=== PATIENT | male | born 1995 | race Caucasian/White ===

== ENCOUNTER 2021-09-26 12:49 | Observation (INO) | payer OTHER ==
[2021-09-26] MEDS ORDERED: Ringers Lactate 1,000 ML IV ONE ×2 (13:17→15:37)
[2021-09-26] MEDS ORDERED: KETOROLAC 30 MG/ML INJ ONE (13:20)
[2021-09-26] MEDS ORDERED: SUCCINYLCHOLINE 20 MG/ML (10 ML) IV ONE (13:20)
[2021-09-26] MEDS ORDERED: FENTANYL CITR 100 MCG/2 ML ONE (13:20)
[2021-09-26] MEDS ORDERED: propofoL 200 MG/20 ML VIAL IV ONE (13:20)
[2021-09-26] MEDS ORDERED: ROCURONIUM 50 MG/5 ML VIAL IV ONE (13:20)
[2021-09-26] MEDS ORDERED: MIDAZOLAM HCL 2 MG/2 ML INJ ONE (13:20)
[2021-09-26] MEDS ORDERED: dexAMETHasone 10 MG/ML VIAL ONE (13:20)
[2021-09-26] MEDS ORDERED: LIDOCAINE 2% MPF 5 ML VIAL ONE (13:20)
[2021-09-26] MEDS ORDERED: ONDANSETRON 4 MG/2 ML VIAL ONE (13:20)
[2021-09-26] MEDS ORDERED: NA CIT/CITRIC AC 30 ML ORAL UDC ONE (13:21)
[2021-09-26] MEDS ORDERED: Phenylephrine HCl 10 MG/ML 1 ML VIAL ONE (13:21)
[2021-09-26] MEDS ORDERED: GLYCOPYRROLATE 0.2 MG/ML SYR ONE (14:41)
[2021-09-26] MEDS ORDERED: NEOSTIGMINE 1 MG/ML -10 ML VIAL ONE (14:43)
--- NOTE | 2021-09-26 15:05 | P.BOP ---
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
[2021-09-26] MEDS ORDERED: HYDROCODONE/APAP 5/325 MG TAB PO PRN (15:09)
[2021-09-26] MEDS ORDERED: MORPHINE 2 MG/ML SYR IV PRN (15:09)
[2021-09-26] MEDS ORDERED: SODIUM CHLORIDE 0.9% 10ML INJ IV PRN (15:09)
[2021-09-26] MEDS ORDERED: HYDROMORPHONE HCL 1 MG/ML INJ IV PRN (15:09)
[2021-09-26] MEDS ORDERED: MEPERIDINE HCL 25 MG/ML SYR ONE (15:24)
[2021-09-26] MEDS ORDERED: ONDANSETRON 4 MG/2 ML VIAL IV PRN (16:20)
[2021-09-26 16:55] VITALS: O2SAT 100
[2021-09-26 17:18] VITALS: BMI 22.3
[2021-09-26] MEDS: NA CHLORIDE 0.9% 1,000 ML IV SCH (19:34)
[2021-09-26] MEDS: CEFOXITIN 1 GM in NA CHLORIDE 0.9% 50 ML IVPB SCH (19:34)
[2021-09-27] MEDS: CEFOXITIN 1 GM in NA CHLORIDE 0.9% 50 ML IVPB SCH ×2 (00:22→05:20)
--- NOTE | 2021-09-27 02:15 | OP ---
Date of Procedure: 09/26/2021 Surgeon: Fortino Vargas MD Film Waxer: VLADIMIR Graham Preoperative Diagnosis: Acute appendicitis. Postoperative Diagnosis: Acute appendicitis. Procedure: Laparoscopic appendectomy. Estimated Blood Loss: Less than 10 mL. Specimen: Appendix. Finding: Acute appendicitis. Anesthesia: General plus local. Indication: This is the case of a male who comes to us with acute abdominal pain. He came to an ER around the area, [place], from there he was transferred to this institution after diagnosed with append icitis, leukocytosis, intractable abdominal pain. The benefits, alternatives, and risks of laparosco pic, possible open appendectomy fully explained, which include, but not limited to infection, bleedin g, damage to adjacent structures, anesthesia complication, [place], and even . He also understands t his may not relieve any symptoms. He might need more than one surgical intervention. He understood, signed the consent. Description Of Procedure: Patient was brought to the operating room, placed in supine position. Ane sthesia was done without complication. Abdominal area was prepped and draped in usual sterile fashio n. Marcaine 0.5% was injected for local anesthetic, followed by sharp incision of the skin in the in fraumbilical region. Incision was carried down to fascia, which was opened under direct vision. Per itoneum was encountered and opened under direct vision. Vicryl #1 placed inside the fascia. Marita trocar was carefully introduced. Pneumoperitoneum was obtained. I placed 2 trocars, 5 mm each one o f them in the suprapubic and left lower quadrant. At that moment, I proceeded to visualize the area of the appendix, indeed looks inflamed. The distal part of the appendix looks inflamed, long appendi x. A window was created in the base of the appendix, which spared from the inflammation and transect ed with an Endo-MATT nonvascular 45. Then, the mesoappendix with an Endo-MATT 45 mm vascular. Appendi x removed from abdominal cavity using EndoCatch through the umbilical incision. The area was inspect ed and irrigation was done and suctioned. No bowel leak. No bleeding. At that moment, I proceeded to remove the trocars under direct vision. Deflated pneumoperitoneum. Closed the fascia with #1 Pal ryl. Irrigated the subcutaneous tissue and closed that with 3-0 chromic. The patient tolerated the procedure well. The skin was approximated. The patient was sent to recovery in stable condition. Patient is having some pain at this moment. He preferred to stay overnight, so we are going to keep him overnight for observation and pain control. Then most likely tomorrow, we are going to send him home. TAMI/ILIANA Voice ID: [id number] Report ID: [id number]
[2021-09-27] MEDS: NA CHLORIDE 0.9% 1,000 ML IV SCH (04:40)
[2021-09-27 05:51] LABS: Absolute Lymphocytes (CBC) 0.8 K/uL (0.7-4.9); Hematocrit 40.2 % (39.6-49.0); Lymphocytes % 6.5 % (15.3-44.8); MPV 7.9 fL (7.6-11.3); RBC Red Blood Cell Count 4.82 M/uL (4.33-5.43)
[2021-09-27 06:00] LABS: Potassium 3.8 mmol/L (3.5-5.1)
[2021-09-27] MEDS ORDERED: PANTOPRAZOLE 40 MG INJ IVP SCH (09:00)
[2021-09-27 12:14] VITALS: BP 135/61; TEMP 97.9
--- NOTE | 2021-09-27 12:50 | P.DS ---
Admission Date: 09/26/21 Discharge Date: 09/27/21 Disposition: ROUTINE DISCHARGE Discharge Condition: GOOD Brief History of Present Illness: see hPI Hospital Course: unremarkable Vital Signs/Physical Exam: Temp Pulse Resp BP Pulse Ox 97.9 F 81 16 135/61 97 09/27/21 12:00 09/27/21 12:00 09/27/21 12:00 09/27/21 12:00 09/27/21 12:00 General: Alert, In no apparent distress, Oriented x3, Cooperative HEENT: PERRLA, EOMI Neck: Supple Respiratory: Normal air movement Cardiovascular: No edema, Normal pulses Gastrointestinal: Soft and benign Musculoskeletal: No erythema, No tenderness, No warmth Integumentary: No rashes Neurological: Normal speech Laboratory Data at Discharge: WBC 11.6 K/uL (4.3-10.9) H 09/27/21 05:31 Hgb 13.6 g/dL (13.6-17.9) 09/27/21 05:31 Hct 40.2 % (39.6-49.0) 09/27/21 05:31 Plt Count 208 K/uL (152-406) 09/27/21 05:31 Sodium 139 mmol/L (136-145) 09/27/21 05:31 Potassium 3.8 mmol/L (3.5-5.1) 09/27/21 05:31 BUN 8 mg/dL (7-18) 09/27/21 05:31 Creatinine 0.81 mg/dL (0.55-1.3) 09/27/21 05:31 Glucose 123 mg/dL (74-106) H 09/27/21 05:31 Home Medications: Amox/Clavulanate [Augmentin 875-125 Tab] 875 mg PO BID #12 tab 09/27/21 Codeine/APAP [Tylenol W/Codeine #3 tab] 1 tab PO Q4HP PRN #28 tab 09/27/21 New Medications: Amox/Clavulanate [Augmentin 875-125 Tab] 875 mg PO BID #12 tab Codeine/APAP [Tylenol W/Codeine #3 tab] 1 tab PO Q4HP PRN #28 tab PRN Reason: Pain Physician Discharge Instructions: Keep area dry for 24h then may remove outer dressing and shower. Cover incisions with band aid Diet: Regular Activity: No lifting more than 10 lbs Followup: Fortino Vargas MD [ACTIVE - CAN ADMIT] - 1 Week
== END 2021-09-27 13:40 | disposition home or self-care (01) ==
LOC: LAB 12:49 → 2ND 16:50
PROVIDERS: ADMIT Surgery; ATTEND Surgery
PROC: 0DTJ4ZZ Resection of Appendix, Percutaneous Endoscopic Approach (ICD-10-PCS; principal; 2021-09-26 12:00)
DX: K35.80 Unspecified acute appendicitis (principal)
CPT/HCPCS: 85025; 80048; 36415; 88304; 97116; 97161; 94010; 44970; J2704; J2710; J0330; J2370; C9113; J2250; J3010; J1100; J2175; J7120 ×2; J7030 ×2; J0694 ×3; J2405; G0379; G0378 ×2